=== PATIENT | female | born 1945 | race Caucasian/White ===

== ENCOUNTER 2020-03-01 13:10 | Outpatient (CLI) | payer OTHER, SELFPAY ==
--- NOTE | ~2020-03-01 | MM_ITS ---
EXAMINATION: MM screening [facility] BI w deon HISTORY: Screening mammogram TECHNIQUE: Craniocaudal and mediolateral oblique 3-D tomosynthesis images were obtained and synthetic 2-D images were generated. CAD analysis was submitted and interpreted. COMPARISON: 06/19/2018, 06/14/2017, 06/11/2016 BREAST PARENCHYMAL COMPOSITION: The breasts are almost entirely fatty. FINDINGS: Stable subareolar asymmetry is present in the right breast on the craniocaudal view. There is no evidence of suspicious mass, calcification, or architectural distortion to suggest malignancy i n either breast. There has been no suspicious interval change. IMPRESSION: 1. No mammographic evidence of malignancy. 2. Recommend routine screening mammography in one year. BI-RADS Category 2: Benign finding(s). Reviewed, dictated and finalized at location A. COOK
== END 2020-03-01 13:11 | disposition home or self-care (01) ==
PROVIDERS: PCP Family Medicine; Visit Provider Family Medicine
DX: Z12.31 Encounter for screening mammogram for malignant neoplasm of breast (principal)
CPT/HCPCS: 77063; 77067

== ENCOUNTER 2020-07-05 09:39 | Outpatient (CLI) | payer OTHER, SELFPAY ==
--- NOTE | ~2020-07-05 | CT_ITS ---
EXAMINATION: CTA chest DATE: 07/05/2020 10:13 INDICATION: Ascending aortic dilation TECHNIQUE: Computed tomographic angiography (CTA) of the chest was performed without and with 100 mL Omnipaque-350 intravenous contrast. Volume-rendered 3D-reconstructions of the aorta and large arterie s were constructed by the technologist on a separate workstation. Automated exposure control and iter ative reconstruction technique were employed. The dose-length product was 179 mGy-cm. COMPARISON: 06/11/2017 FINDINGS: No interval change in the ascending thoracic aorta which measures up to 3.8 x 3.7 [address] in maximal diame ter measured orthogonal to the axis of flow on sagittal and coronal images respectively which is with in normal limits. Normal caliber aorta at the arch and descending thoracic aorta. Mild biapical pleur al-parenchymal scarring. No interval change in a 4 mm groundglass nodule in the lateral basilar segme nt of the left lower lobe which remains without a solid component. Lungs are otherwise clear with no pneumonia, pulmonary edema or pleural effusion. Heart size is normal. No pericardial or pleural effus ion. No pulmonary embolism. No pathologically enlarged thoracic lymphadenopathy. 1.3 cm left thyroid nodule. Small sliding-type hiatal hernia. Unchanged 6 mm flash filling hemangioma at the posterior me dial dome of the liver. Mild upper thoracic levoscoliosis with mild spondylosis. IMPRESSION: 1. No thoracic aortic aneurysm. 2. Small sliding-type hiatal hernia. Reviewed, dictated and finalized at location A.
== END 2020-07-05 09:40 | disposition home or self-care (01) ==
PROVIDERS: PCP Family Medicine; Visit Provider Internal Medicine Cardiovascular Disease
DX: I77.810 Thoracic aortic ectasia (principal); K44.9 Diaphragmatic hernia without obstruction or gangrene
CPT/HCPCS: 71275; Q9967

== ENCOUNTER 2020-09-06 11:53 | Outpatient (CLI) | payer OTHER, SELFPAY ==
--- NOTE | ~2020-09-06 | XR_ITS ---
XR chest 2V DATE: 09/06/2020 12:07 INDICATION: Intermittent productive cough. Nonsmoker. TECHNIQUE: PA and lateral views COMPARISON: 07/05/2020 CT pulmonary scan FINDINGS: Bilateral hyperinflation. No pulmonary infiltrate or consolidation. No pleural effusion or pulmonary vascular congestion or pneumothorax. Normal heart size. No hilar or mediastinal enlargement. There is levoscoliosis of the upper thoracic spine. Diffuse osteopenia. IMPRESSION: Bilateral hyperinflation; no active cardiopulmonary disease Diffuse osteopenia Reviewed, dictated and finalized at location B.
== END 2020-09-06 11:54 | disposition home or self-care (01) ==
PROVIDERS: PCP Family Medicine; Visit Provider Family Medicine
DX: R05 Cough (principal); M85.88 Other specified disorders of bone density and structure, other site; R91.8 Other nonspecific abnormal finding of lung field
CPT/HCPCS: 71046

== ENCOUNTER → 2020-10-05 10:55 | Outpatient (CLI) | payer OTHER, SELFPAY ==
--- NOTE | ~2020-10-05 | CT_ITS ---
EXAMINATION: CT diagnostic chest wo con DATE: 10/05/2020 11:15 INDICATION: Chronic cough TECHNIQUE: Computed tomography (CT) of the chest was performed without intravenous contrast. Automate d exposure control and iterative reconstruction technique were employed. Exam dose: 140.46 mGy-cm to baylee exam DLP. COMPARISON: 09/23/2020 2 view chest FINDINGS: Normal heart size. Coronary artery calcification. No pericardial effusion. No pleural effus ion. No hilar or mediastinal mass lesion or lymphadenopathy. No thoracic aortic aneurysm. Mild stable bilateral apical scarring. Stable approximately 3 mm pleura-based opacity in the left upper lobe (series 4 image 36), also prese nt on 08/21/2011. Stable 4 mm groundglass nodule at the peripheral lateral left lower lobe (series 4 image 81), not sig nificantly changed since 07/05/2020, also present on 08/21/2011. Stable approximately 2.7 mm nodule in the posterolateral left lower lobe (image 108), unchanged since 08/21/2011. No interval new or developing pulmonary lesion is evident. No pulmonary infiltrate or consolidation. Small sliding hiatal hernia. Normal morphology of the adrenal glands. No suspicious osteolytic or osteoblastic lesions. IMPRESSION: No active disease or significant change since 08/21/2011 Reviewed, dictated and finalized at Location A. Reviewed, dictated and finalized at location A.
== END ==
PROVIDERS: PCP Family Medicine; Visit Provider Physician Assistant
DX: R05 Cough (principal)
CPT/HCPCS: 71250

== ENCOUNTER 2020-10-25 12:55 | Outpatient (CLI) | payer OTHER, SELFPAY ==
--- NOTE | ~2020-10-25 | DEXA_ITS ---
Bone Density Report Name: Mary Nevarez Age: 75 Sex: Female Ethnicity: White Date of : 1945 Indication: postmenopausal osteoporosis; monitoring treatment; hysterectomy; Referring Provider: VINCE READ Study: Bone densitometry was performed. Exam Date: October 25, 2020 Accession number: [id number] Bone Density: Region BMD T-score Z-score Classification AP Spine (L1-L4) 0.775 -2.5 -0.1 Osteoporosis Femoral Neck (Left) 0.564 -2.6 -0.5 Osteoporosis Total Hip (Left) 0.695 -2.0 -0.3 Osteopenia Total Hip Bilateral Avg 0.684 -2.1 -0.4 Osteopenia Femoral Neck (Right) 0.618 -2.1 0.0 Osteopenia Total Hip (Right) 0.673 -2.2 -0.4 Osteopenia World Health Organization criteria for BMD impression classify patients as: Normal (T-score at or above -1.0), Osteopenia (T-score between -1.0 and -2.5), or Osteoporosis (T-score at or below -2.5). 10-year Fracture Risk: FRAX not reported because: Some T-score for Spine Total or Hip Total or Femoral Neck at or below -2.5 Treated for osteoporosis Previous Exams: Region Exam Age BMD T-score BMD Change BMD Change Date g/cm2 vs Baseline vs Previous AP Spine(L1-L4) 10/25/2020 75 0.775 -2.5 0.021(2.8%) 0.021(2.8%) 10/22/2018 73 0.754 -2.7 Total Hip(Left) 10/25/2020 75 0.695 -2.0 0.022(3.3%) 0.022(3.3%) 10/22/2018 73 0.673 -2.2 Total Hip(Right) 10/25/2020 75 0.673 -2.2 0.024(3.7%) 0.024(3.7%) 10/22/2018 73 0.649 -2.4 *Denotes significance at 95% confidence level, LSC for AP Spine = 0.022 g/cm2, LSC for Total Hip = 0.027 g/cm2 Clinical Information Provided by Patient: Is being treated for osteoporosis Has used the following medications: Prolia (i.e. denosumab), Vitamin D Has the following medical conditions: Hysterectomy Patient maximum height was 66 Menopause Age: 56 Onset of menses at age 13 Number of children 3 Impression: The patient has osteoporosis, based on the Left Femoral Neck T-score. No significant bone loss was observed. Discussion: PATIENT UNDER TREATMENT WITH NO SIGNIFICANT BMD LOSS SINCE LAST EXAM. In an untreated patient, BMD typically declines with age. A lack of decline or gain is usually a sign that treatment is efficacious and fracture risk is reduced. It is important to ask patients whether they are taking their medications and to encourage continued and appropriate compliance with their osteoporosis therapies to reduce fracture risk. It is also important to revi
== END 2020-10-25 12:56 | disposition home or self-care (01) ==
LOC: ANHIMG 13:00
PROVIDERS: PCP Family Medicine; Visit Provider Physician Assistant
DX: M81.0 Age-related osteoporosis without current pathological fracture (principal); M85.852 Other specified disorders of bone density and structure, left thigh; M85.851 Other specified disorders of bone density and structure, right thigh
CPT/HCPCS: 77080

== ENCOUNTER 2021-01-18 09:56 | Outpatient (CLI) | payer OTHER, SELFPAY ==
--- NOTE | 2021-01-18 15:05 | WPDPFTINT ---
PFT Procedure Performed PFT Procedure Performed Spirometry with Pre/Post Bronchodilator Plethysmography (Lung Vol) Diffusing Cap (DLCO) Flow Vol Loop PFT Interpretation This is a pulmonary function test with pre and post-bronchodilator spirometry, plethysmography and diffusing capacity. The test was performed and results interpreted in accordance with the 2019 and 2005 ATS/ERS Task Force guidelines respectively using the Global Lung Function Initiative-2012 reference equations. Patient demonstrated good effort and cooperation. Reproducibility criteria were met. The quality of the pre bronchodilator spirometry maneuver was Grade A and post bronchodilator spirometry maneuver was Grade A. Findings: Spirometry: The contour the inspiratory and expiratory flow tracing are normal. The pre bronchodilator FVC is 2.76 L, 90% predicted. The pre bronchodilator FEV1 is 1.87 L, 86% predicted. The FEV1: FVC ratio 68%. The post bronchodilator FVC is 2.60 L, representing a 6% decrease. The post bronchodilator FEV1 is 1.89 L, representing 1% increase. The post bronchodilator FEV1: FVC ratio 73%. Plethysmography: The total lung capacity is 3.90 L, 72% predicted. The functional residual capacity is 2.07 L, 63% predicted. The residual volume is 1.14 L, 52% predicted. Diffusing capacity: The absolute diffusion capacity is 17.6, 98% predicted. The diffusing capacity corrected for alveolar volume is 4.66, 133% predicted Impression: There is a mild restrictive ventilatory abnormality with a normal FEV1. The spirometry is normal without evidence of an obstructive abnormality. There is no significant improvement after inhaling a single dose of albuterol. The diffusing capacity is normal. There are no prior studies for comparison .
== END 2021-01-18 09:57 | disposition home or self-care (01) ==
LOC: ANHPFT 09:57
PROVIDERS: PCP Family Medicine; Visit Provider Family Medicine
DX: R05.9 Cough, unspecified (principal); R94.2 Abnormal results of pulmonary function studies
CPT/HCPCS: 94375; 94726; 94729

== ENCOUNTER 2021-06-01 12:30 | Outpatient (CLI) | payer OTHER, SELFPAY ==
--- NOTE | ~2021-06-01 | XR_ITS ---
EXAMINATION: XR barium swallow modified EXAM DATE: 06/01/2021 13:20 INDICATION: R05.3 - Chronic cough. TECHNIQUE: Modified barium esophagram was performed by speech pathologist with radiologist Dr. Kash Bergeron present to administered fluoroscopy. Speech pathologist administered barium in varying consis tencies as per speech pathologist documentation. This was recorded on tape. There was total fluorosc opic time of 0.6 minutes The DAP for this procedure was 0.35 Gycm2. A total of 2 images sent to NC CS from the exam. FINDINGS: Oral stage: Adequate function. Pharyngeal phase: Reduced laryngeal elevation. Laryngeal penetration: Trace. Aspiration: None. Laryngeal sensitivity: Present. IMPRESSION: Patient tolerated oral feedings in the upright position. Please refer to speech patholo gist findings and specific feeding recommendations. Reviewed, dictated and finalized at location A. IMPRESSION: Patient tolerated oral feedings in the upright position. Please r efer to speech pathologist findings and specific feeding recommendations.
--- NOTE | 2021-06-02 15:30 | STOPEVAL ---
MODIFIED BARIUM SWALLOW EVALUATION: Thank you for referring Mary Nevarez to [facility].? Attending Provider: Mena Brand MD fax: [phone] Modified Barium Swallow Evaluation Recent Swallowing History Reports Dysphagia Yes: rare instance of any difficulty swallow Onset of Dysphagia 05-26-21 Other Related History chronic cough x 3 years History of Pneumonia No Reported Difficult Consistencies Unable to Identify Intake Method Prior to Swallow Oral Evaluation Diet Prior to Swallow Evaluation Regular, Level 7 Liquid Consistency Prior to Swallow Thin (0) Evaluation Consistency Solid Consistency Method of Presentation Spoon Oral Preparatory Symptoms None Oral Phase Symptoms None Pharyngeal Phase Symptoms None Severity of Vallecular Residue None - 0% No Residue Severity of Pyriform Sinus Residue None - 0% No Residue 8 Point Laryngeal Penetration-Aspiration Material Does Not Enter Airway Scale Cervical/Esophageal Symptoms None Mixed Consistency Method of Presentation Spoon Oral Preparatory Symptoms None Oral Phase Symptoms None Pharyngeal Phase Symptoms None Severity of Vallecular Residue None - 0% No Residue Severity of Pyriform Sinus Residue None - 0% No Residue 8 Point Laryngeal Penetration-Aspiration Material Does Not Enter Airway Scale Cervical/Esophageal Symptoms None Pureed Consistency Method of Presentation Spoon Oral Preparatory Symptoms None Oral Phase Symptoms None Pharyngeal Phase Symptoms None Severity of Vallecular Residue None - 0% No Residue Severity of Pyriform Sinus Residue None - 0% No Residue 8 Point Laryngeal Penetration-Aspiration Material Does Not Enter Airway Scale Cervical/Esophageal Symptoms None Thin Uncontrolled 2 Method of Presentation Straw Oral Preparatory Symptoms None Oral Phase Symptoms None Pharyngeal Phase Symptoms Within Functional Limits, Laryngeal Penetration Severity of Vallecular Residue None - 0% No Residue Severity of Pyriform Sinus Residue None - 0% No Residue 8 Point Laryngeal Penetration-Aspiration Material Enters the Airway, Scale Remains Above Vocal Folds, is Ejected Cervical/Esophageal Symptoms None Thin Method of Presentation Cup Oral Preparatory Symptoms None Oral Phase Symptoms None Pharyngeal Phase Symptoms None Severity of Vallecular Residue None - 0% No Residue Severity of Pyriform Sinus Residue None - 0% No Residue 8 Point Laryngeal Penetration-Aspiration Material Does Not Enter Airway Scale Cervical/Esophageal Symptoms None Thin 5 mL
== END 2021-06-01 12:31 | disposition home or self-care (01) ==
PROVIDERS: PCP Family Medicine; Visit Provider Internal Medicine Critical Care Medicine
DX: R05.3 Chronic cough (principal)
CPT/HCPCS: 92611

== ENCOUNTER 2021-07-03 12:01 | Emergency (ER) | payer OTHER, SELFPAY ==
[2021-07-03 12:09] VITALS: BP 138/58; PULSE 83; RESP 16; TEMP 36.3; O2SAT 100
--- NOTE | 2021-07-03 12:13 | ED.SKABFB ---
HPI - Skin/Abscess/Foreign Bdy General Chief complaint: Skin/Abscess/Foreign Body Stated complaint: insect bite on right hand Time Seen by Provider: 07/03/21 12:15 Source: patient and RN notes reviewed Mode of arrival: ambulatory Limitations: no limitations History of Present Illness HPI narrative: 76-year-old female presents concern for redness, itching after an insect bite. Reports she felt a sting to the palmar aspect of her right hand below her fifth digit yesterday. She reports she woke the middle the night with the area itching and noticed to this morning that it was red. She denies any trouble breathing, swollen lips, swollen tongue, nausea, vomiting, diarrhea. She applied ice but did not take any medications. MD complaint: insect bite/sting Related Data Allergies Allergy/AdvReac Type Severity Reaction Status Date / Time nickel Allergy Mild Rash Verified 07/03/21 12:10 Review of Systems Review of Systems: CONSTITUTIONAL: Denies malaise, chills, sweats, or fever. EYES: Denies redness, or discharge. ENT: Denies rhinorrhea, congestion, swollen lips, swollen tongue CARDIOVASCULAR: Denies chest pain, palpitations, or edema. RESPIRATORY: Denies cough or dyspnea. GASTROINTESTINAL: Denies abdominal pain, nausea, vomiting SKIN: Reports redness and itching on her left hand MUSCULOSKELETAL: Denies joint painor myalgia. NEUROLOGIC: Denies headache. All systems reviewed & are unremarkable except as noted in HPI and below PMFSH Past Medical History Medical History Ascending aorta dilatation HLD (hyperlipidemia) IFG (impaired fasting glucose) Osteoporosis PSVT (paroxysmal supraventricular tachycardia) Surgical History Surgical History History of unilateral oophorectomy Status post breast reduction Status post hysterectomy Family History Family History Mother Cerebrovascular accident Sibling Family history of coronary artery disease Family history of malignant neoplasm of breast in first degree relative Other Diabetes mellitus Family history of diabetes mellitus in first degree relative Family history of malignant neoplasm of male breast Social History Social History Smoking status: Never smoker Second hand tobacco smoke exposure: No Alcohol intake: never Substance use: never Substance use type: does not use Gender identity (if verbalized by the patient): Female Sexual Orientation (if Verbalized by the Patient): Straight or Heterosexual Spiritual care concerns: No Comments At time of signature, agree with nursing past medical, surgical, social and family history. There is no relevant family history pertinent to the presenting complaint Exam Narrative: GENERAL: Well-appearing, well-nourished, and in no acute distress. HEAD: Normocephalic, atraumatic. EYES: PERRLA, conjunctivae clear, and EOMI. ENT: Mucous membranes moist. Oropharynx without edema, erythema or lesions. NECK: Supple. No lymphadenopathy CHEST: Clear to auscultation. No respiratory distress. HEART: Regular rate and rhythm. SKIN: Warm, dry. Palmar aspect of the right hand and the dorsal aspect of left hand beneath digits 4 and 5 erythematous and slightly warm without induration or edema. No scabs, papules noted MUSCULOSKELETAL: Right hand has grossly normal range of motion, sensation, strength NEURO: Alert and oriented x3. PSYCH: Normal mood and affect Course Course Emergency Course: Patient is aware of diagnosis, understands and agrees to treatment plan. Anticipatory guidance given. Patient agrees to follow-up as directed and is aware of reasons to seek care at the emergency department. Portions of this record may have been created with voice recognition software Level of Care: Express Care Visit Vital Signs V
== END 2021-07-03 12:35 | disposition home or self-care (01) ==
PROVIDERS: Emergency Provider Nurse Practitioner; PCP Family Medicine
DX: T63.481A Toxic effect of venom of other arthropod, accidental (unintentional), initial encounter (principal); E78.5 Hyperlipidemia, unspecified
CPT/HCPCS: 99213; G0463

== ENCOUNTER 2021-07-06 14:26 | Outpatient (CLI) | payer OTHER, SELFPAY ==
--- NOTE | ~2021-07-06 | MM_ITS ---
EXAMINATION: MM screening [facility] BI w deon HISTORY: Screening TECHNIQUE: Craniocaudal and mediolateral oblique 3-D tomosynthesis images were obtained and synthetic 2-D images were generated. CAD analysis was submitted and interpreted. COMPARISON: Comparison to multiple prior studies sequentially, with oldest reviewed study dated 01/25. BREAST PARENCHYMAL COMPOSITION: There are scattered areas of fibroglandular density. FINDINGS: There is no evidence of suspicious mass, calcification, or architectural distortion to sugg est malignancy in either breast. There has been no suspicious interval change. IMPRESSION: 1. No mammographic evidence of malignancy. 2. Recommend routine screening mammography in one year. BI-RADS Category 1: Negative Reviewed, dictated and finalized at location A.
== END 2021-07-06 14:27 | disposition home or self-care (01) ==
LOC: ANHIMG 14:28
PROVIDERS: PCP Family Medicine; Visit Provider Family Medicine
DX: Z12.31 Encounter for screening mammogram for malignant neoplasm of breast (principal)
CPT/HCPCS: 77063; 77067

== ENCOUNTER 2021-07-12 09:05 | Outpatient (CLI) | payer OTHER, SELFPAY ==
--- NOTE | ~2021-07-12 | CT_ITS ---
EXAMINATION:CT chest high resolution [facility] DATE: 07/12/2021 09:28 INDICATION: Chronic cough. TECHNIQUE: Computed tomography (CT) of the chest was performed without intravenous contrast. Automate d exposure control and iterative reconstruction technique were employed. The dose-length product (DLP ) was 136.41 mGy-cm. COMPARISON: Chest CT 10/05/2020 FINDINGS: There is mild scarring at the lung apices. There is mild atelectasis in the inferior lungs. There is mild bronchiectasis bilaterally. There is mucous plugging in the left lower lobe, right mid dle lobe, and lingula. No pleural effusion. The heart size is normal. There are coronary artery calci fications. No pericardial effusion. There is a small sliding hiatal hernia. There is thoracic levosco liosis and mild spondylosis. There is severe cervical spondylosis. IMPRESSION: 1. Mild bronchiectasis. 2. Small sliding hiatal hernia. Reviewed, dictated and finalized at location B.
== END 2021-07-12 09:06 | disposition home or self-care (01) ==
PROVIDERS: PCP Family Medicine; Visit Provider Internal Medicine Critical Care Medicine
DX: K44.9 Diaphragmatic hernia without obstruction or gangrene (principal); J98.11 Atelectasis
CPT/HCPCS: 71250

== ENCOUNTER 2021-11-14 00:08 | Day surgery (SDC) | payer OTHER, SELFPAY ==
[2021-09-19 08:56] VITALS: BMI 20.9
[2021-10-27 14:13] VITALS: BMI 20.9
[2021-11-14 07:59] VITALS: BP 138/69; PULSE 66; RESP 16; TEMP 36.6; O2SAT 100
[2021-11-14] MEDS: LACTATED RINGERS 1,000 ML 150 ML IV CONT (08:07)
--- NOTE | 2021-11-14 08:10 | WPDANESEPPF ---
Anes - Initial Pre Proc Eval Procedure: Operation Date: 11/14/21 09:15 Proposed Procedures p Screening Colonoscopy - Gildardo Casas MD Date/Time: 11/14/21 08:10 Surgeon: Gildardo Casas MD Pre Op Diagnosis: neoplasm screening Patient Data Age: 76 Gender: F Height: 1.68 m Weight: 55.4 kg Last Vital Signs Temp 36.6 C 11/14/21 07:59 Pulse 66 11/14/21 07:59 Resp 16 11/14/21 07:59 BP 138/69 11/14/21 07:59 Pulse Ox 100 11/14/21 07:59 O2 Del Method Room Air 11/14/21 07:59 Allergies Allergy/AdvReac Type Severity Reaction Status Date / Time nickel Allergy Mild Rash Verified 11/14/21 07:58 Home Medications Medication Instructions Recorded Confirmed Type denosumab 60 mg/mL subcutaneous 60 mg subcut [id number] 07/03/21 11/14/21 History syringe (Prolia) fluticasone furoate 100 1 inh inhalation Q24H 1 month #60 08/15/21 11/14/21 Rx mcg-vilanterol 25 mcg/dose ea inhalation powder (Breo Ellipta) pravastatin 10 mg tablet See Rx Instructions .Route 08/17/21 11/14/21 Rx .COMPLEX #45 tabs amlodipine 2.5 mg tablet 2.5 mg PO DAILY #30 tabs 10/25/21 11/14/21 Rx Patient hx anesthesia problems: none Family hx anesthesia problems: none Results Review: All pre-operative results and documents have been reviewed as part of the pre-operative evaluation. [facility] Past Medical History Medical History Ascending aorta dilatation HLD (hyperlipidemia) HTN (hypertension) IFG (impaired fasting glucose) Osteoporosis PSVT (paroxysmal supraventricular tachycardia) Surgical History Surgical History History of unilateral oophorectomy Status post breast reduction Status post hysterectomy Family History Family History Mother Cerebrovascular accident Sibling Family history of coronary artery disease Family history of malignant neoplasm of breast in first degree relative Other Diabetes mellitus Family history of diabetes mellitus in first degree relative Family history of malignant neoplasm of male breast Social History Social History Smoking status: Never smoker Second hand tobacco smoke exposure: No Alcohol intake: never Substance use: never Substance use type: does not use Living arrangements: with family Gender identity (if verbalized by the patient): Female Sexual Orientation (if Verbalized by the Patient): Straight or Heterosexual Spiritual care concerns: No Anes - Eval Final PreProcedure Day of Procedure 11/14/21 08:10 Patient weight: normal Heart: regular rate and rhythm Lungs: clear to auscultation Airway: Mallampati scale class II Neurological: alert and oriented Last oral intake: >/= 8 hours ASA classification: III Emergent: no Anesthetic plan: proceed Anesthesia type and monitoring: general GIVS and standard monitoring Results Review: All pre-operative results and documents have been reviewed as part of the pre-operative evaluation. Informed Consent: The patient's anesthetic plan and its attendant risks and benefits were discussed with the patient/family/POA. Questions were solicited and answers provided to the satisfaction of the patient/family/POA.
--- NOTE | 2021-11-14 08:16 | PM.IMHP ---
H&P: HPI History of Present Illness Date/Time: 11/14/21 08:16 Chief Complaint: Neoplasia screening. Narrative: This is 76-year-old white female patient is referred for neoplasia screening colonoscopy. Patient reports that her current weight appetite and bowel movements are normal. She denies abdominal pain. She has no bleeding. Family history is noncontributory. Patient had previous colonoscopy stool 2016 and 2011 that were both relatively unremarkable. No polyps previously been found. She presents today on referral from primary care service. Neoplasia screening will be performed. Review of Systems Review of Systems: Review of systems noncontributory. [facility] Past Medical History Medical History Ascending aorta dilatation HLD (hyperlipidemia) HTN (hypertension) IFG (impaired fasting glucose) Osteoporosis PSVT (paroxysmal supraventricular tachycardia) Surgical History Surgical History History of unilateral oophorectomy Status post breast reduction Status post hysterectomy Family History Family History Mother Cerebrovascular accident Sibling Family history of coronary artery disease Family history of malignant neoplasm of breast in first degree relative Other Diabetes mellitus Family history of diabetes mellitus in first degree relative Family history of malignant neoplasm of male breast Social History Social History Smoking status: Never smoker Second hand tobacco smoke exposure: No Alcohol intake: never Substance use: never Substance use type: does not use Living arrangements: with family Gender identity (if verbalized by the patient): Female Sexual Orientation (if Verbalized by the Patient): Straight or Heterosexual Spiritual care concerns: No Meds Home Medications and Allergies Home Medications Medication Instructions Recorded Confirmed Type denosumab 60 mg/mL subcutaneous 60 mg subcut [id number] 07/03/21 11/14/21 History syringe (Prolia) fluticasone furoate 100 1 inh inhalation Q24H 1 month #60 08/15/21 11/14/21 Rx mcg-vilanterol 25 mcg/dose ea inhalation powder (Breo Ellipta) pravastatin 10 mg tablet See Rx Instructions .Route 08/17/21 11/14/21 Rx .COMPLEX #45 tabs amlodipine 2.5 mg tablet 2.5 mg PO DAILY #30 tabs 10/25/21 11/14/21 Rx Allergies Allergy/AdvReac Type Severity Reaction Status Date / Time nickel Allergy Mild Rash Verified 11/14/21 07:58 Vital Signs Vital Signs - 24 hr 11/14/21 07:59 Temperature 98 F Pulse Rate 66 Respiratory Rate 16 Blood Pressure 138/69 Pulse Oximetry 100 Oxygen Delivery Room Air Exam Narrative: Physical exam reveals patient to be alert. Vital signs stable. HEENT exam is unremarkable. Patient is anicteric. Lungs are clear to auscultation and percussion. Heart is without murmur or extra sounds. Abdomen bowel sounds are present soft nontender with no organomegaly. Digital external rectal exam is normal. Assessment and Plan Assessment and plan (1) Encounter for screening colonoscopy: Code(s): Z12.11 - Encounter for screening for malignant neoplasm of colon Status: Acute Assessment and Plan: Patient presents for screening colonoscopy. Appears to be at average risk for colon polyps. Further recommendations will be given after endoscopy.
[2021-11-14 09:35] VITALS: BP 107/60; PULSE 60; RESP 18; O2SAT 100
[2021-11-14 09:45] VITALS: BP 112/61; PULSE 58; RESP 16; O2SAT 100
[2021-11-14 09:55] VITALS: BP 124/67; PULSE 53; RESP 14; O2SAT 100
== END 2021-11-14 10:09 | disposition home or self-care (01) ==
PROVIDERS: PCP Family Medicine; Visit Provider Internal Medicine Gastroenterology
PROC: 0DJD8ZZ Inspection of Lower Intestinal Tract, Via Natural or Artificial Opening Endoscopic (ICD-10-PCS; CPT 45378; principal; 2021-11-14 09:15)
DX: Z12.11 Encounter for screening for malignant neoplasm of colon (principal); K64.8 Other hemorrhoids; K57.30 Diverticulosis of large intestine without perforation or abscess without bleeding; I10 Essential (primary) hypertension; E78.5 Hyperlipidemia, unspecified; I47.1 Supraventricular tachycardia; M81.0 Age-related osteoporosis without current pathological fracture
CPT/HCPCS: G0121; J2704; J7120

== ENCOUNTER 2021-11-27 09:00 | Outpatient (CLI) | payer OTHER, SELFPAY ==
--- NOTE | 2021-11-27 13:14 | WPDPFTINT ---
PFT Procedure Performed PFT Procedure Performed Spirometry with Pre/Post Bronchodilator Plethysmography (Lung Vol) Diffusing Cap (DLCO) Flow Vol Loop PFT Interpretation This is a pulmonary function test with pre and post-bronchodilator spirometry, plethysmography and diffusing capacity. The test was performed and results interpreted in accordance with the 2019 and 2005 ATS/ERS Task Force guidelines respectively using the Global Lung Function Initiative-2012 reference equations. Patient demonstrated good effort and cooperation. Reproducibility criteria were met. The quality of the pre bronchodilator spirometry maneuver was Grade A and post bronchodilator spirometry maneuver was Grade A. Findings: Spirometry: The contour the inspiratory and expiratory flow tracing are normal. The pre bronchodilator FVC is 3.02 L, 102% predicted. The pre bronchodilator FEV1 is 2.21 L, 97% predicted. The pre bronchodilator FEV1: FVC ratio was 73%. The post bronchodilator FVC is 2.85 L, representing a 6% decrease. The post bronchodilator FEV1 is 2.23 L, representing 1% increase. The post bronchodilator FEV1: FVC ratio 79%. Plethysmography: The total lung capacity is 4.95 L, 90% predicted. The functional residual capacity is 2.86 L, 90% predicted. The residual volume is 1.92 L, 79% predicted. Diffusion capacity: The diffusion capacity unadjusted for hemoglobin and carboxyhemoglobin is 19.3, 91% predicted. The diffusing capacity adjusted for alveolar volume is 4.85, 119% predicted. Impression: The spirometry is normal without evidence of an obstructive abnormality. There is no significant improvement after inhaling a single dose of albuterol. The lung volumes are normal. The diffusing capacity is normal. There are no prior studies for comparison
== END 2021-11-27 09:01 | disposition home or self-care (01) ==
PROVIDERS: PCP Family Medicine; Visit Provider Internal Medicine Critical Care Medicine
DX: J45.50 Severe persistent asthma, uncomplicated (principal)
CPT/HCPCS: 94060; 94726; 94729

== ENCOUNTER 2022-10-02 08:17 | Outpatient (CLI) | payer OTHER, SELFPAY ==
--- NOTE | ~2022-10-02 | MM_ITS ---
EXAMINATION: MM screening [facility] BI w deon HISTORY: Screening mammogram TECHNIQUE: Craniocaudal and mediolateral oblique 3-D tomosynthesis images were obtained and synthetic 2-D images were generated. CAD analysis was submitted and interpreted. COMPARISON: 07/06/2021, 03/21/2020, 06/19/2018 BREAST PARENCHYMAL COMPOSITION: There are scattered areas of fibroglandular density. FINDINGS: No suspicious mass, calcification, or architectural distortion are identified in either vida ast to suggest malignancy. There has been no suspicious interval change. IMPRESSION: 1. No mammographic evidence of malignancy. 2. Recommend routine screening mammography in one year. BI-RADS Category 1: Negative Reviewed, dictated and finalized at location A.
== END 2022-10-02 08:18 | disposition home or self-care (01) ==
PROVIDERS: PCP Family Medicine; Visit Provider Family Medicine
DX: Z12.31 Encounter for screening mammogram for malignant neoplasm of breast (principal)
CPT/HCPCS: 77063; 77067

== ENCOUNTER 2022-10-04 07:55 | Outpatient (CLI) | payer OTHER, SELFPAY ==
--- NOTE | 2022-10-09 17:17 | WPDSIXMINUTE ---
Six Minute Walk Procedure Procedure Performed Pulmonary Stress Test (6 min walk) Six Minute Walk Six Minute Walk: DATE OF SERVICE: 10/04/2022 REQUESTING: Mena Brand MD REASON FOR TESTING: Asthma SIX MINUTE WALK This test was conducted per ATS guidelines. THe patient walked while breathing room air. The initial saturation was 96%, and initial heart rate was 61 beats per minute. The patient walked without stopping, completing 1400 feet/426.7 meters. The saturation at the end of testing was 98%, and the heart rate was 80 beats per minute. IMPRESSION: This is a normal study. The patient did not require supplemental oxygen with exertion. Mena Brand MD
== END 2022-10-04 07:56 | disposition home or self-care (01) ==
LOC: ANHPFT 07:56
PROVIDERS: PCP Family Medicine; Visit Provider Internal Medicine Critical Care Medicine
DX: J45.909 Unspecified asthma, uncomplicated (principal)
CPT/HCPCS: 94618

== ENCOUNTER 2022-10-05 07:57 | Outpatient (CLI) | payer OTHER, SELFPAY ==
--- NOTE | ~2022-10-05 | US_ITS ---
EXAMINATION: US thyroid DATE: 10/05/2022 08:36 INDICATION: Disorder of thyroid, unspecified. TECHNIQUE: Multiple ultrasound images of the thyroid were obtained. COMPARISON: None. FINDINGS: The right thyroid lobe measures 4.8 x 1.6 x 1.4 cm. The left thyroid lobe measures 4.5 x 1.9 x 1.9 c m. The thyroid is diffusely heterogeneous and increased vascularity. In the left thyroid lobe, there is a 20 mm mixed cystic and solid, isoechoic, wider than tall nodule with smooth margin without echo genic foci (TI-RADS TR2). In the right thyroid lobe, there is 11 mm solid, isoechoic, wider than tall nodule with smooth margin without echogenic foci (TR3). IMPRESSION: 1. Heterogeneous, hypervascular thyroid, consistent with chronic lymphocytic (Enoch) thyroiditis. 2. Thyroid nodules, likely not clinically significant. No follow-up is needed. Reviewed, dictated and finalized at location A. IMPRESSION: 1. Heterogeneous, hypervascular thyroid, consistent with chronic lymphocytic (H ashimoto) thyroiditis. 2. Thyroid nodules, likely not clinically significant. No follow-up is needed.
== END 2022-10-05 07:58 | disposition home or self-care (01) ==
PROVIDERS: PCP Family Medicine; Visit Provider Otolaryngology
DX: E07.9 Disorder of thyroid, unspecified (principal); H61.23 Impacted cerumen, bilateral; J37.1 Chronic laryngotracheitis; E04.2 Nontoxic multinodular goiter
CPT/HCPCS: 76536

== ENCOUNTER 2022-11-16 13:25 | Outpatient (CLI) | payer OTHER, SELFPAY ==
--- NOTE | ~2022-11-16 | DEXA_ITS ---
Bone Density Report Name: HOA LI Age: 77 Sex: Female Ethnicity: White Date of : 1945 Indication: postmenopausal; screening for osteoporosis; height loss; history of glucocorticoids; asthma or emphysema; Referring Provider: ADWOA MORA Study: Bone densitometry was performed. Exam Date: November 16, 2022 Accession number: [id number] Bone Density: Region BMD T-score Z-score Classification AP Spine(L1-L4) 0.788 -2.4 0.1 Osteopenia Femoral Neck (Left) 0.571 -2.5 -0.3 Osteoporosis Total Hip (Left) 0.682 -2.1 -0.3 Osteopenia Femoral Neck (Right) 0.648 -1.8 0.3 Osteopenia Total Hip (Right) 0.664 -2.3 -0.4 Osteopenia Total Hip Mean 0.673 -2.2 -0.4 Osteopenia World Health Organization criteria for BMD impression classify patients as: Normal (T-score at or above -1.0), Osteopenia (T-score between -1.0 and -2.5), or Osteoporosis (T-score at or below -2.5). 10-year Fracture Risk: FRAX not reported because: Some T-score for Spine Total or Hip Total or Femoral Neck at or below -2.5 Treated for osteoporosis Clinical Information Provided by Patient: Has taken Glucocorticoids Is being treated for osteoporosis Has used the following medications: Prolia (i.e. denosumab), Vitamin D Has the following medical conditions: Asthma or Emphysema Patient maximum height was 67 Menopause Age: 56 Onset of menses at age 13 Number of children 3 Impression: The patient has osteoporosis, based on the Left Femoral Neck T-score. The patient has risk factors, including: history of glucocorticoid therapy. Discussion: It is important to ask patients whether they are taking their medications and to encourage continued and appropriate compliance with their osteoporosis therapies to reduce fracture risk. It is also important to review their risk factors and encourage appropriate calcium and vitamin D intakes, exercise, fall prevention and other lifestyle measures. Follow-Up: Consider a repeat BMD and Vertebral Fracture Assessment (VFA) exam in 2 years or sooner if medically necessary, to reassess this patient's status. Reported by: MILA on 11/16/2022 1:56:00 PM. Reviewed, dictated and finalized at location John BA
== END 2022-11-16 13:26 | disposition home or self-care (01) ==
LOC: ANHIMG 13:26
PROVIDERS: PCP Family Medicine; Visit Provider Physician Assistant
DX: M81.0 Age-related osteoporosis without current pathological fracture (principal); M85.88 Other specified disorders of bone density and structure, other site; M85.852 Other specified disorders of bone density and structure, left thigh; M85.851 Other specified disorders of bone density and structure, right thigh
CPT/HCPCS: 36415; 77080; 82040; 82310

== ENCOUNTER 2023-11-14 08:28 | Outpatient (CLI) | payer OTHER, SELFPAY ==
--- NOTE | ~2023-11-14 | MM_ITS ---
EXAMINATION: MM screening [facility] BI w deon HISTORY: Screening mammogram, family history of breast cancer in her half sister. TECHNIQUE: Craniocaudal and mediolateral oblique 3-D tomosynthesis images were obtained and synthetic 2-D images were generated. CAD analysis was submitted and interpreted. COMPARISON: 10/02/2022, 07/06/2021, 03/01/2020, 06/19/2018 BREAST PARENCHYMAL COMPOSITION:Not Dense. There are scattered areas of fibroglandular density. FINDINGS: No suspicious mass, calcification, or architectural distortion are identified in either vida ast to suggest malignancy. There has been no suspicious interval change. IMPRESSION: No mammographic evidence of malignancy. Recommend routine screening mammography in one year. BI-RADS Category 1: Negative Reviewed, dictated and finalized at [facility].
== END 2023-11-14 08:29 | disposition home or self-care (01) ==
LOC: ANHIMG 08:29
PROVIDERS: PCP Family Medicine; Visit Provider Family Medicine
DX: Z12.31 Encounter for screening mammogram for malignant neoplasm of breast (principal)
CPT/HCPCS: 77063; 77067

== ENCOUNTER 2023-12-18 10:50 | Outpatient (CLI) | payer OTHER, SELFPAY ==
--- NOTE | ~2023-12-18 | XR_ITS ---
CHEST RADIOGRAPH, PA AND LATERAL CLINICAL HISTORY: R05.9 - Cough, unspecified X 4 DAYS . COMPARISON: 09/06/2020. Reference is also made to a CT examination of the chest dated 07/12/2021 TECHNIQUE: PA and lateral views of the chest. FINDINGS The cardiomediastinal silhouette is unremarkable. Indeterminate asymmetry within the superior segment of the right upper lobe, for which cross-sectiona l imaging (noncontrast enhanced CT examination of the chest) is recommended. The remainder of the lungs are clear. Visualized osseous structures and soft tissues are unremarkable. IMPRESSION: Indeterminate asymmetry within the superior segment of the right upper lobe, for which cross-sectiona l imaging (noncontrast enhanced CT examination of the chest) is recommended. Reviewed, dictated and finalized at location A. IMPRESSION: Indeterminate asymmetry within the superior segment of the right upper lobe, fo r which cross-sectional imaging (noncontrast enhanced CT examination of the jayson st) is recommended.
== END 2023-12-18 10:51 | disposition home or self-care (01) ==
LOC: ANHIMG 10:54
PROVIDERS: PCP Family Medicine; Visit Provider Physician Assistant Medical
DX: R05.9 Cough, unspecified (principal)
CPT/HCPCS: 71046

== ENCOUNTER 2023-12-28 07:51 | Outpatient (CLI) | payer OTHER, SELFPAY ==
--- NOTE | ~2023-12-28 | CT_ITS ---
CT Scan of the Chest without Contrast: Clinical Indication: Nonspecific abnormal finding of lung field Technique: Contiguous sections were acquired throughout the chest without intravenous contrast. Dose reduction technique was used on this scan by utilizing automated exposure control and iterative recon struction technique. The dose-length product (DLP) was 134.63 mGy-cm. COMPARISON: 07/12/2021 Findings: There is no evidence of any significant mediastinal, hilar or axillary lymphadenopathy. The mediastin al soft tissues appear normal. There is no evidence of pleural or pericardial effusion. Mild biapical scarring is unchanged. There are scattered focal irregular pulmonary opacities, especia lly the right middle lobe, anterior left upper lobe, or focal subcentimeter nodular opacities in the right lower lobe, left lower lobe, and right upper lobe. Findings suggest acute on chronic small airw ays infectious process, mildly worsened overall from prior exam. Images through the upper abdomen reveal no abnormalities. Impression: Scattered pulmonary abnormalities, as noted above, mildly worsened from prior exam, compatible with m ild worsening of acute on chronic small airways infection. Reviewed, dictated and finalized at location M. R FEEDER Impression: Scattered pulmonary abnormalities, as noted above, mildly worsened from prior e xam, compatible with mild worsening of acute on chronic small airways infection .
== END 2023-12-28 07:52 | disposition home or self-care (01) ==
PROVIDERS: PCP Family Medicine; Visit Provider Physician Assistant Medical
DX: R91.8 Other nonspecific abnormal finding of lung field (principal)
CPT/HCPCS: 71250

== ENCOUNTER 2024-09-14 11:41 | Outpatient (CLI) | payer OTHER, SELFPAY ==
--- NOTE | ~2024-09-14 | XR_ITS ---
[XR ribs BI 3V w CXR 2V ] INDICATION: Rib pain after recent fall TECHNIQUE: Frontal projection of the upper ribs, frontal projection of the lower ribs, oblique projec tion of all the ribs, frontal inspiratory chest x-ray for interpretation. FINDINGS: There are no displaced rib fractures identified. There are no soft tissue abnormality see n. The lungs are clear. IMPRESSION: 1:No acute displaced rib fractures. Reviewed, dictated and finalized at location A.
--- OUTSIDE RECORDS SUMMARY | 2024-09-14 11:46 | XMS_ITS | Clinical Summary ---
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
--- OUTSIDE RECORDS SUMMARY | 2024-09-14 11:46 | XMS_ITS | Encounter Summary ---
Author Organization [facility] Address [address] [place] [address] Phone Care Team Providers Care Stock Handler Floorperson Name Role Phone Quinton Calvert MD Primary Care Provider Xena Benavides ADMITTING SUPERVISOR Unavailable +1 Guera Miller ADMITTING SUPERVISOR Unavailable + Encounter Details Date Type Department Care Team (Latest Contact Info) Description 07/03/2022 Orders Only [facility] Scanning, Provider Social History Tobacco Use Types Packs/Day Years Used Date Smoking Tobacco: Never Smokeless Tobacco: Never Alcohol Use Standard Drinks/Week Comments No 0 (1 standard drink = 0.6 oz pur e alcohol) Comments Unknown Sex and Gender Information Value Date Recorded Sex Assigned at Not on file 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 Gender Identity Not on file Sexual Orientation Not on file documented as of this encounter Plan of Treatment Not on file documented as of this encounter Procedures Procedure Name Priority Date/Time Associated Diagnosis Comments SCAN - RADIOLOGY/IMAGING 07/03/2022 4:29 PM CDT documented in this encounter Results * SCAN - RADIOLOGY/IMAGING (07/03/2022 4:29 PM CDT) Anatomical Region Laterality Modality Other us Provider Scanning Final Result documented in this encounter Visit Diagnoses Not on filedocumented in this encounter Care Teams Stock Handler Floorperson Relationship Specialty Start Date End Date Quinton Calvert MD [address] [place] [address] PCP - General Family Medicine 02/11/17 Xena Benavides, ADMITTING SUPERVISOR [address] [facility] [address] [place] [address] Speech Language Pathologist Speech Therapy 09/25/22 1 03/08/23 Guera Miller, DANIEL [address] [facility] [address] [place] [address] Speech Language Pathologist Speech Therapy 01/08/24 documented as of this encounter
--- OUTSIDE RECORDS SUMMARY | 2024-09-14 11:46 | XMS_ITS | Encounter Summary ---
Author Organization [facility] Address 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
--- OUTSIDE RECORDS SUMMARY | 2024-09-14 11:46 | XMS_ITS | Clinical Summary ---
Author Organization [facility] Address [address] [address] Care Team Providers Care Laundry Machine Operator Name Role Phone Quinton Calvert MD Primary Care Provider Guera Miller Unavailable [phone] Allergies Active Allergy Reactions Criticality Noted Date Comments Nickel Medications pravastatin (PRAVACHOL) 10 mg tablet Take 0.5 tablets (5 mg total) by mouth daily Active denosumab (PROLIA) 60 mg/mL syringe Inject under the skin every 6 (six) months Active Symbicort 160-4.5 mcg/actuation inhaler 02/01/2023 Active metoprolol tartrate (LOPRESSOR) 25 mg immediate release tablet TAKE 1 TABLET (25 MG TOTAL) BY MOUTH DAILY NEEDED (PALPITATION S) 90 tablet 2 03/19/2024 Active sertraline (ZOLOFT) 25 mg tablet Take 1 tablet (25 mg total) by mouth daily 30 tablet 11 07/06/2024 Active Active Problems Problem Noted Date Diagnosed Date 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 Nonfluent, agrammatic PPA Interested in trials. Evaluated at [facility], did not qualify. Consider: [id number]: Interleukin-2 Plus Abatacept in Frontotemporal Dementia - Semantic Variant Primary Progressive Aphasia and Non-Fluent Variant Primary Progressive Aphasia Concern for depressive symptoms. Trial of Sertraline at 25mg to be started. Assessment & Plan (05/06/2023 5:30 PM CDT): Expected progression clinically and by testing. Pursue speech therapy and the AAC modalities. Safe Return IDs discussed. RTC in 12 months. Will see pt in ALLFTD study in 6 months. Aneurysm of ascending aorta without rupture 06/25 Frontotemporal dementia 12/25/2021 Assessment & Plan (12/16/2023 11:31 AM CDT): She was not a candidate for the ALLFTD study. No medications recommended at this time. They are working on an AAC device to help with aphasia. Follow-up scheduled with Dr. Cardenas in June 2024. Assessment & Plan (12/25/2021 2:52 PM CDT): Considerations include PPA, AD Check brain MRI (3D) Check B12, TSH, free T4, A1c May consider neuropsych testing, CSF testing, FDG-PET testing down the line. Tingling of both feet 12/25/2021 Mixed hyperlipidemia 06/30/2021 SVT (supraventricular tachycardia) 02/16/2015 Overview (06/07/2016): PSVT (paroxysmal supraventricular tachycardia) Premature menopause 06/24/2010 Overview (06/06/2017): Description: Menopausal Disorder Notalgia 06/24/2010 Overview (06/06/2017): Description: Backache Resolved Problems Problem Noted Date Diagnosed Date Resolved Date Palpitations 02/16/2015 12/23/2023 Overview (06/07/2016): Palpitations Elevated blood pressure 02/16/201511/26 Overview (06/07/2016): Elevated BP Benign hypertension 02/16/2015 12/23/19 Overview (06/07/2016): HTN (hypertension), benign Dyslipidemia 02/16/2015 07/11/2022 Overview (06/07/2016): Dyslipidemia Elevated blood-pressure read ing without diagnosis of hypertension 02/16/2015 12/23/2023 Overview (06/07/2016): Elevated blood pressure reading without diagnosis of hypertension Osteoporosis 06/23/2012 02/28/2018 Encounters Date Type Department Care Team Description 07/06/2024 4:00 PM CDT Office Visit [facility] [place] [address] [facility] 6th [place] [address] [place] [address] Janine Cardenas MD PhD Primary progressive aphasia (HCC) (Primary Dx) 06/26/2024 Telephone [place] [address] [facility] [address] [place] [address] Kathie Harris RMA 06/25/2024 Telephone [place] [address] [facility] [address] [place] [address] Kathie Harris RMA from Last 3 Months Surgical History Surgery Date Site/Laterality Comments OOPHORECTOMY TOTAL ABDOMINAL HYSTERECTOMY REDUCTION MAMMAPLASTY COLONOSCOPY Medical History Medical History Date Comments PSVT (paroxysmal supraventricular tachycardia) HLD (hyperlipidemia) IFG (impaired fasting glucose) Aortic dilatation ascending Osteoporosis Asthma Hypertension Early cataracts, bilateral Family History Medical History Relation Name Comments Heart attack Brother Myocardial infa rction; Relation Name Status Comments Brother Social History Tobacco Use Types Packs/Day Years Used Date Smoking Tobacco: Never Smokeless Tobacco: Never Alcohol Use Standard Drinks/Week Comments No 0 (1 standard drink = 0.6 oz pur e alcohol) Comments No Sex and Gender Information Value Date Recorded Sex Assigned at Not on file Legal Sex Female 2:51 AM REGULATORY AND COMPLIANCE TECHNICIAN Gender Identity Not on file Sexual Orientation Not on file Obstetrics History Last Filed Vital Signs Vital Sign Reading Time Taken Comments Blood Pressure 136/78 07/06/2024 3:59 PM CDT Pulse 64 07/06/2024 3:59 PM CDT Temperature 36.6 C (97.8 F) 12/16/2023 10:45 AM CDT Respiratory Rate - - Oxygen Saturation 98% 12/23/2023 9:33 AM CDT Inhaled Oxygen Concentration - - Weight 54.9 kg (121 lb) 07/06/2024 3:59 PM CDT Height 167.6 cm (5' 6) 07/06/2024 3:59 PM CDT Body Mass Index 19.53 07/06/2024 3:59 PM CDT Plan of Treatment Health Maintenance Due Date Last Done Comments Depression Screening 1945 Fall Risk Assessment 1945 Hepatitis C Screening 1945 DTaP/Tdap/Td Vaccine (1 - Tdap) 1957 Hepatitis B Screening 1964 Zoster Vaccine (1 of 2) 1996 Well Visit 65+ 2011 Pneumococcal vaccine 65+ (2 of 2 - PPSV23) 02/01/2017 02/02/2016 Osteoporosis Screening-Bone Density Scan 02/12/2020 02/11/2018, 10/01/2016, 08/17/2013, Additional history exists Influenza Vaccine (Season Ended) 2024 11/05/2018, 12/06/2017, 11/18/2016, Additional history exists Procedures Procedure Name Priority Date/Time Associated Diagnosis Comments DEXA AXIAL SKELETON BONE DENSITY 1 OR MORE SITES Schedule Routine, Read Routine (OP Routine) 02/11/2018 11:54 AM REGULATORY AND COMPLIANCE TECHNICIAN Osteopenia of multiple sites from Last 3 Months or Most Recently Relevant to Health Maintenance Results * Dexa Axial Skeleton Bone Density 1 or 2 Site (02/11/2018 11:54 AM REGULATORY AND COMPLIANCE TECHNICIAN) Anatomical Region Laterality Modality Body N/A Radiographic Lacie ging Narrative 02/11/2018 11:54 AM REGULATORY AND COMPLIANCE TECHNICIAN Patient Name: Hoa Li Date of : 1945 Date of scan: 02/10/2018 Bone mineral density was performed on a HoloGigaCrete Discovery Densitometer. Machine Cross-calibration and Precision studies have been performed with a least significant change of 0.024 g/cm at the spine, 0.020 g/cm at the total proximal femur, and 0.014g/cm at the forearm. HISTORY: This is a 72 y.o. postmenopausal female with a history of osteoporosis. Currently on treatment with Prolia. Previously treated with Fosamax and Actonel. History of tobacco use: History Smoking Status Never Smoker INDICATIONS: Menopause status, treatment monitoring and history of osteoporosis. FINDINGS: BONE MINERAL DENSITY OF THE LUMBAR SPINE Bone Mineral Density (BMD) of the lumbar spine was measured from L1-L4 and the average density was calculated to be 0.745 gm/cm. This corresponds to a T-score standard deviations from the mean of young adults of -2.7. When compared to the previous study of 10/01/2016 there has been no significant change noted. BONE MINERAL DENSITY OF THE PROXIMAL FEMUR Bone Mineral Density (BMD) of the left hip total was found to be 0.640 gm/cm2. This corresponds to a T-score standard deviations from the mean of young adults of -2.5. Femoral neck is 0.558 gm/cm2 with a T-score of -2.6. When compared to the previous study of there has been a measured -0.042 gm/cm -6.1 % decrease which is considered significant. SUMMARY: Bone mineral density shows evidence of osteoporosis and marked increase risk of fracture.There has been a signicant decrease in bone density since previous measurement. ADDITIONAL COMMENTS: If the patient has a history of a fragility fracture, a fracture that occurred with trauma equivalent to a fall from a standing position or less, then the diagnosis is osteoporosis. The risk of osteoporotic fracture increases approximately 2-fold for each 1.0 SD decrease in T-score. However, low bone density is not the only risk factor for fracture. Other factors include patient s age, previous osteoporotic fracture or prior fracture as an adult, loss of height of greater than 2 inches, corticosteroid use, risk of falling, risk of injury, and family history of osteoporosis. Not everyone with low bone mineral density has osteoporosis. Osteomalacia and other metabolic bone disorders should also be considered where indicated. Patients who have osteoporosis should be evaluated for specific diseases and conditions (secondary causes) that may cause or contribute to bone loss. Consider repeating this study in 1-2 years to assess the patient s response to treatment, if applicable. It is recommended that any follow up exam be performed on the same machine if possible for better accuracy. DEFINITIONS: Osteoporosis: BMD at or below -2.5 T-score Osteopenia (low bone mass): BMD between -1.0 and-2.5 T-score. The Bone Health Program adopts the following WHO definitions: Osteoporosis: BMD below -2.5 S.D. as compared to the BMD of young normal adults. Osteopenia or Low Bone Mass: BMD between -1.0 and -2.5 S.D. below the BMD of young normal adults. Normal Bone Density: BMD equal to or greater than -1.0 S.D. as compared to the BMD of young normal adults. References: 1) Alex, Annals of Internal Medicine 114(11): 919-923 (1990) 2) Tatyana, Lancet 341 : 72-75 (1992) 3) Pk, Journal Bone and Mineral Research 7(6): 633-8 (1991) 4) Enmanuel, Journal Bone and Mineral Research 8(10):1227-33 (1992) The history and data sections of the bone mineral density scan were prepared by RT Pavithra who is accredited by the International Society of Clinical Densitometry. The overall patient assessment and scan interpretation were performed by Joe Savage M.D. who is certified by the International Society of Clinical Densitometry. [id number] Joe Savage MD IMG DXA PROCEDURES Final Re sult from Last 3 Months or Most Recently Relevant to Health Maintenance Insurance [facility] [place] [facility] Member Subscriber Plan / Payer (Ef fective 2013-Present) Name:HOA LI Relation to Subscriber:Self Name:Hoa Li Payer ID:[id number] (NAIC) Type:MEDICARE RISK OTHER Address: [place] [id number] [facility] Member Subscriber Plan / Payer ( fective 2013-Present) Name:HOA LI Relation to Subscriber:Self Name:Hoa Li Payer ID:[id number] (NAIC) Type:MEDICARE RISK OTHER Address: [place] [id number] Care Teams Laundry Machine Operator Relationship Specialty Start Date End Date Quinton Calvert MD [address] [facility] [address] [place] [address] PCP - General Family Medicine 02/11/17 Guera Miller, PUBLIC TRANSIT TROLLEY DRIVER [address] [facility] [address] [place] [address] Speech Language Pathologist Speech Therapy 01/08/24
--- OUTSIDE RECORDS SUMMARY | 2024-09-14 11:46 | XMS_ITS | Referral Summary ---
Author Organization [facility] Address [address] [place] [address] Care Team Providers Care Cdl Instructor Name Role Phone Quinton Calvert MD Primary Care Provider Guera Miller Unavailable [phone] Encounters Date Type Department Care Team Description 07/06/2024 4:00 PM CDT Office Visit [facility] [place] [address] [facility] 6th [place] [address] [place] [address] Janine Cardenas MD PhD Primary progressive aphasia (HCC) (Primary Dx) 06/26/2024 Telephone [facility] [address] [place] [address] Kathie Harris RMA 06/25/2024 Telephone [facility] [address] [place] [address] Kathie Harris RMA from Last 3 Months Allergies Active Allergy Reactions Criticality Noted Date [...] agrammatic PPA Interested in trials. Evaluated at [facility], did not qualify. Consider: [id number]: Interleukin-2 Plus Abatacept in Frontotemporal Dementia - [...] without diagnosis of hypertension Osteoporosis 06/23/2012 02/28/2018 Social History Tobacco Use Types Packs/Day Years Used Date Smoking Tobacco: Never Smokeless Tobacco: Never Alcohol Use Standard Drinks/Week Comments No 0 (1 standard drink = 0.6 oz pur e alcohol) Comments No Sex and Gender Information Value Date Recorded Sex Assigned at Not on file Legal Sex Female 2:51 AM HELPER ELECTRICAL Gender Identity Not on file Sexual Orientation Not on file Last Filed Vital Signs Vital Sign Reading [...] 07/06/2024 3:59 PM CDT Plan of Treatment Not on file Procedures Procedure Name Priority Date/Time Associated Diagnosis Comments DEXA AXIAL SKELETON BONE DENSITY 1 OR MORE SITES Schedule Routine, Read Routine (OP Routine) 02/11/2018 11:54 AM HELPER ELECTRICAL Osteopenia of multiple sites from Last 3 Months or Most Recently Relevant to Health Maintenance Results * Dexa Axial Skeleton Bone Density 1 or 2 Site (02/11/2018 11:54 AM HELPER ELECTRICAL) Anatomical Region Laterality Modality Body N/A Radiographic Lacie ging Narrative 02/11/2018 11:54 AM HELPER ELECTRICAL Patient Name: Hoa Li Date of : 1945 Date of scan: 02/10/2018 Bone mineral density was performed on a HoloDirectr Discovery Densitometer. Machine Cross-calibration and Precision studies [...] of Internal Medicine 114(11): 919-923 (1990) 2) Joe, Lancet 341 : 72-75 (1992) 3) Black, Journal Bone and Mineral Research 7(6): 633-8 [...] by the International Society of Clinical Densitometry. [id number] Joe Savage MD IMG DXA PROCEDURES Final Re sult from Last 3 Months or Most Recently Relevant to Health Maintenance Insurance [facility] Care Teams Cdl Instructor Relationship Specialty Start Date End Date Quinton Calvert MD [address] [facility] [address] [place] [address] PCP - General Family Medicine 02/11/17 Guera Miller SLP [address] [facility] [address] [place] [address] Speech Language Pathologist Speech Therapy 01/08/24
--- OUTSIDE RECORDS SUMMARY | 2024-09-14 11:46 | XMS_ITS | Encounter Summary ---
[facility] Organization [facility] Address [address] [place] [address] Care Team Providers Care Program Management Professional Name Role Phone Unavailable Primary Care Provider Unavailabl e Encounter Details Date Type Department Care Team (Late st Contact Info) Description 12/03/2003 Outpatient Historical [facility] Kris Galindo MD [address] [address] SCREENING MAMM-MAILG NEOPL-OTHER (Primary Dx) Social History Tobacco Use Types Packs/Day Years Used Date Smoking Tobacco: Never Assessed Comments Unknown Sex and Gender Information Value Date Recorded Sex Assigned at Not on file Legal Sex Female 2:38 AM ENGINEERING DRAFTER Gender Identity Not on file Sexual Orientation Not on file documented as of this encounter Plan of Treatment Not on file documented as of this encounter Visit Diagnoses Diagnosis Other screening mammogram- Primary documented in this encounter
== END 2024-09-14 11:42 | disposition home or self-care (01) ==
PROVIDERS: PCP Family Medicine; Visit Provider Family Medicine
DX: R07.89 Other chest pain (principal); W19.XXXA Unspecified fall, initial encounter; Y92.009 Unspecified place in unspecified non-institutional (private) residence as the place of occurrence of the external cause
CPT/HCPCS: 71046; 71110

== ENCOUNTER 2024-12-02 15:05 | Outpatient (CLI) | payer OTHER, SELFPAY ==
--- NOTE | ~2024-12-02 | MM_ITS ---
EXAMINATION: MM screening [facility] BI w deon HISTORY: Screening TECHNIQUE: Craniocaudal and mediolateral oblique 3-D tomosynthesis images were obtained and synthetic 2-D images were generated. CAD analysis was submitted and interpreted. COMPARISON: Comparison to multiple prior studies sequentially, with oldest reviewed study dated 06/19/2018. BREAST PARENCHYMAL COMPOSITION: There are scattered areas of fibroglandular density. FINDINGS: There is no evidence of suspicious mass, calcification, or architectural distortion to suggest malignancy in either breast. Scattered benign-appearing calcifications are present. IMPRESSION: 1. No mammographic evidence of malignancy. 2. Recommend routine screening mammography in one year. BI-RADS Category 2: Benign finding(s). Reviewed, dictated and finalized at location B.
== END 2024-12-02 15:06 | disposition home or self-care (01) ==
LOC: ANHFOHIMG 15:08
PROVIDERS: PCP Family Medicine; Visit Provider Family Medicine
DX: Z12.31 Encounter for screening mammogram for malignant neoplasm of breast (principal)
CPT/HCPCS: 77063; 77067